=== PATIENT | female | born 1980 | race Caucasian/White ===

== ENCOUNTER 2023-07-16 08:30 | Observation (INO) ==
[2023-07-16 08:52] VITALS: BMI 42.5
[2023-07-16] MEDS ORDERED: TORADOL 60 MG VIAL IM ONE (09:21)
--- NOTE | 2023-07-16 09:21 | DR.URIAD ---
HPI Time Seen Time Seen by Provider: 07/16/23 09:20 PCP Primary Care Physician: tomasa Complaint Chief Complaint:: fever and body aches since wed night. has taken theraflu x2 doses. positive family contact for flu who was in the hospital. pt states temp was up to 105 has not taken tylenol or motrin today. Self Treatment fo Chief Complaint: theraflu 2 dose COVID-19 Coronavirus risk:travel/contact w/high risk person: Yes Has patient experienced Coronavirus symptoms: Yes Coronavirus symptoms experienced: Fever Source History Provided: Patient and Family Member Mode of Arrival Mode of Arrival: Wheelchair Timing Onset of Chief Complaint: 07/14/23 Quality Shortness of Breath: Mild PMH PMH Past Medical History: Yes Past Medical History Comment: tachycardia, dystolic dysfunction Past Surgical History: Yes Surgical History: Cholecystectomy, [place] [employer] Surgery, Hysterectomy and Ortho Surgery Family History History of Family Medical Conditions: Yes Family Medical History: Cancer, [place] and Coronary Artery Disease Social History Alcohol Use: None Do you use any recreational Drugs:: Yes (thc for migraines) Lives With: Family Lives Where: Home Travel Risk Coronavirus risk:travel/contact w/high risk person: Yes Has patient experienced Coronavirus symptoms: Yes Coronavirus symptoms experienced: Fever Infectious screening In the last 2 months have you had wt loss of >10#?: NO Have you had fever, night sweats or hemotysis?: No Have you traveled outside the country in the last 6 months?: No Isolation: Standard PE Vital Signs Vitals: Vital Signs Temperature 98.3 F Temperature 103 F Pulse Rate 111 Respiratory Rate 18 Respiratory Rate 18 Respiratory Rate 20 Respiratory Rate 20 Respiratory Rate 20 Blood Pressure 136/65 O2 Sat by Pulse Oximetry 96 COURSE Treatment Treatment: See orders done while patient was in the emergency room. Patient is 42-year-old female who developed URI symptoms and flulike symptoms 3 days ago that is getting worse. Parent was evaluated in the emergency room and found to have new onset congestive heart failure as evidenced by fluid buildup on the chest x-ray and elevated BNp on chemistry. Labs and x-ray reports were discussed with patient and her primary care physician was consulted Education/Counseling Education/Counseling: Patient Educated On: Diagnosis ROR Labs Reviewed Laboratory Results Reviewed?: Yes 07/16/23 10:08 07/16/23 10:08 Laboratory: WBC 10.9 X10^3/uL (3.6-10.0) H 07/16/23 10:08 RBC 4.55 X10^6/uL (3.5-5.4) 07/16/23 10:08 Hgb 10.3 g/dL (12.0-16.0) L 07/16/23 10:08 Hct 32.1 % (36.0-47.0) L 07/16/23 10:08 MCV 70.5 fL (80.0-100.0) L 07/16/23 10:08 MCH 22.7 pg (27.0-34.0) L 07/16/23 10:08 MCHC 32.2 g/dL (33.0-35.0) L 07/16/23 10:08 RDW 16.7 % (11.6-16.5) H 07/16/23 10:08 Plt Count 281 X10^3/uL (150.0-450.0) 07/16/23 10:08 Plt Count Comment Adequate (ADEQUATE) 07/16/23 10:08 MPV 8.3 fL (7.4-11.0) 07/16/23 10:08 Neut % (Auto) 88.6 % (42.0-75.0) H 07/16/23 10:08 Lymph % (Auto) 6.0 % (21.0-51.0) L 07/16/23 10:08 [place] % (Auto) 4.8 % (0.0-13.0) 07/16/23 10:08 Eos % (Auto) 0.0 % (0.9-2.9) L 07/16/23 10:08 Baso % (Auto) 0.6 % (0.2-1.0) 07/16/23 10:08 Neut # (Auto) 9.7 x10^3/uL (2.2-4.8) H 07/16/23 10:08 Lymph # (Auto) 0.7 X10^3/uL (1.3-2.9) L 07/16/23 10:08 [place] # (Auto) 0.5 x10^3/uL (0.3-0.8) 07/16/23 10:08 Eos # (Auto) 0.0 x10^3/uL (0.0-0.2) 07/16/23 10:08 Baso # (Auto) 0.1 X10^3/uL (0.0-0.1) 07/16/23 10:08 Absolute Nucleated RBC 0.0 /100WBC 07/16/23 10:08 Plt Morphology Comment Normal (NORMAL) 07/16/23 10:08 RBC Morphology Abnormal (NORMAL) A 07/16/23 10:08 Hypochromasia 1+ A 07/16/23 10:08 Microcytosis Slight A 07/16/23 10:08 Ovalocytes 1+ A 07/16/23 10:08 Sodium 133 mmol/L (136-145) L 07/16/23 10:08 Corrected Sodium TNP 07/16/23 10:08 Potassium 3.0 mmol/L (3.5-5.1) L 07/16/23 10:08 Chloride 98 mmol/L (98-107) 07/16/23 10:08 Carbon Dioxide 22.2 mmol/L (21-32) 07/16/23 10:08 BUN 10 mg/dL (7-18) 07/16/23 10:08 Creatinine 0.71 mg/dL (0.55-1.02) 07/16/23 10:08 Est GFR (MDRD) Af Amer > 60 (>60) 07/16/23 10:08 Est GFR (MDRD) Non-Af > 60 (>60) 07/16/23 10:08 Glucose 97 mg/dL (65-99) 07/16/23 10:08 Calcium 7.5 mg/dL (8.5-10.1) L 07/16/23 10:08 Corrected Calcium 8.5 mg/dL (8.5-10.1) 07/16/23 10:08 Total Bilirubin 1.10 mg/dL (0.2-1.0) H 07/16/23 10:08 AST 24 Units/L (15-37) 07/16/23 10:08 ALT 20 Units/L (12-78) 07/16/23 10:08 Alkaline Phosphatase 112 Units/L (46-116) 07/16/23 10:08 Creatine Kinase 31 Units/L (26-192) 07/16/23 13:46 Troponin I High Sens 8.2 ng/L (4.0-60.0) 07/16/23 13:46 B-Natriuretic Peptide 295 pg/mL (0-79) H 07/16/23 10:08 Total Protein 6.7 g/dL (6.4-8.2) 07/16/23 10:08 Albumin 2.7 g/dL (3.4-5.0) L 07/16/23 10:08 Globulin 4.0 g/dL (2.5-4.5) 07/16/23 10:08 Albumin/Globulin Ratio 0.7 Ratio (1.1-2.1) L 07/16/23 10:08 SARS-CoV-2 (PCR) Negative (NEGATIVE) 07/16/23 09:05 Influenza Type A (PCR) Negative (NEGATIVE) 07/16/23 09:05 Influenza Type B (PCR) Negative (NEGATIVE) 07/16/23 09:05 RSV (PCR) Negative (NEGATIVE) 07/16/23 09:05 XRAY XRAY Interpreted by: Radiologist (Report noted.) and Self Opioid Opioid Risk Tool Age (Guillaume box if 16-45): Yes History of Preadolescent Sexual Abuse: No Total: 1 Total Score Risk Category: Low Risk Copyright: Sukhdeep LEONARD predicting aberrant behaviors Discharge Plan Discharge Plan Patient Disposition: 01 HOME, SELF-CARE Condition: Stable Prescriptions: No Action celecoxib 200 mg capsule 200 mg PO QDAY pantoprazole 40 mg tablet,delayed release (DR/EC) 40 mg PO QDAY metoprolol succinate 25 mg tablet extended release 24 hr 25 mg PO QPM progesterone micronized 100 mg capsule 100 mg PO QPM Health Concerns: Post Hospitalization: new medications and changes needed to prevent readmission or further decline. Pt educated and given instructions on all concerns. Plan of Treatment: Continue with present treatment and follow up plan. Pt is to keep follow up appointment as instructed and take medications as ordered. Orders to Discharge Patient Discharge Orders: Transfer (Routine); Ordered 07/16/23 Ordered By: VIC SANTORO Follow ups/Referrals Follow ups/Referrals: Tom Astorga [Primary Care Provider] - 3 days Instructions Stand Alone Forms: Post Hospital Follow Up Care
[2023-07-16] MEDS ORDERED: TYLENOL 500 MG TAB EXTRA STRENGTH PO ONE ×2 (09:22→09:23)
[2023-07-16] MEDS ORDERED: TORADOL 60 MG VIAL ONE (09:23)
[2023-07-16] MEDS ORDERED: NS 1,000 ML IV 1,000 ML IV ONE (09:47)
[2023-07-16] MEDS ORDERED: NS 1,000 ML IV 1,000 ML ONE (10:08)
[2023-07-16 10:21] LABS: BASOPHILS # (AUTO) 0.1 X10^3/uL (0.0-0.1); BASOPHILS % (AUTO) 0.6 % (0.2-1.0); HEMATOCRIT 32.1 % (36.0-47.0); HEMOGLOBIN 10.3 g/dL (12.0-16.0); LYMPHOCYTES # (AUTO) 0.7 X10^3/uL (1.3-2.9); MEAN CORPUSCULAR HEMOGLOBIN 22.7 pg (27.0-34.0); MEAN CORPUSCULAR HGB CONC 32.2 g/dL (33.0-35.0); MEAN CORPUSCULAR VOLUME 70.5 fL (80.0-100.0); MEAN PLATELET VOLUME 8.3 fL (7.4-11.0); MONOCYTES # (AUTO) 0.5 x10^3/uL (0.3-0.8); MONOCYTES % (AUTO) 4.8 % (0.0-13.0); NEUTROPHILS # (AUTO) 9.7 x10^3/uL (2.2-4.8); NEUTROPHILS % (AUTO) 88.6 % (42.0-75.0); PLATELET COUNT 281 X10^3/uL (150.0-450.0); RED BLOOD COUNT 4.55 X10^6/uL (3.5-5.4); RED CELL DISTRIBUTION WIDTH 16.7 % (11.6-16.5); WHITE BLOOD COUNT 10.9 X10^3/uL (3.6-10.0)
[2023-07-16 10:27] LABS: ALANINE AMINOTRANSFERASE 20 Units/L (12-78); ALBUMIN 2.7 g/dL (3.4-5.0); ALKALINE PHOSPHATASE 112 Units/L (46-116); ASPARTATE AMINO TRANSFERASE 24 Units/L (15-37); BLOOD UREA NITROGEN 10 mg/dL (7-18); CALCIUM 7.5 mg/dL (8.5-10.1); CARBON DIOXIDE 22.2 mmol/L (21-32); CHLORIDE 98 mmol/L (98-107); COR CA(FOR HYPOALB) 8.5 mg/dL (8.5-10.1); CREATININE 0.71 mg/dL (0.55-1.02); GLUCOSE 97 mg/dL (65-99); SODIUM 133 mmol/L (136-145); TOTAL PROTEIN 6.7 g/dL (6.4-8.2); eGFR NON BLACK RACES > 60 (>60)
--- NOTE | 2023-07-16 10:41 | RAD ---
EXAM:CHEST, 1 VIEWHISTORY:COUGH, FEVER, FLU LIKE SYMPTOMS;COMPARISON:No relevant prior studies were available at the time of interpretation.TECHNIQUE:CHEST, 1 VIEWFINDINGS:Chest:Lines and tubes: NoneMediastinum: Cardiac and mediastinal shadow is within normal limits for size and contour.Pulmonary vessels: Pulmonary vasculature is prominent.Lung acosta: No suspicious airspace opacity.Pleura: No effusion. No pneumothorax.Bones and soft tissues: No acute osseous or soft tissue abnormality.IMPRESSION:1. Findings suggest mild heart failureTHIS IS AN ELECTRONICALLY VERIFIED FINAL [id number]/2023 10:37 AM - Electronically signed by Kris Nolasco MD
[2023-07-16 10:57] LABS: HYPOCHROMASIA 1+; MICROCYTOSIS SLIGHT; OVALOCYTES 1+; PLATELET MORPHOLOGY COMMENT NORMAL (NORMAL)
[2023-07-16] MEDS ORDERED: K-DUR TAB 20 MEQ PO ONE ×2 (11:09→11:17)
[2023-07-16] MEDS ORDERED: LASIX IVP ONE (13:25)
[2023-07-16] MEDS ORDERED: LASIX ONE (13:29)
[2023-07-16] MEDS ORDERED: CLEOCIN 600 MG IV PREMIX 600 MG/50 ML BAG IV ONE (13:29)
[2023-07-16] MEDS: CLEOCIN 600 MG IV PREMIX 600 MG/50 ML BAG IV SCH ×2 (13:33→21:07)
--- NOTE | 2023-07-16 14:20 | EKG ---
Test Reason : CHF Blood Pressure : */* mmHG Vent. Rate : 70 BPM Atrial Rate : 70 BPM P-R Int : 120 ms QRS Dur : 90 ms QT Int : 440 ms P-R-T Axes : 38 39 45 degrees QTc Int : 475 ms Normal sinus rhythm Normal ECG No previous ECGs available Confirmed by Arnold Sykes ([id number]) on 07/16/2023 4:28:09 PM Referred By: Confirmed By: Arnold Sykes
--- NOTE | 2023-07-16 15:24 | VAS ---
EXAM:LEVUNIBCH RIGHT Lower extremity DVT Doppler ultrasound examination.HISTORY:rt lower ext redness; Lower extremity pain, swelling, and edemaCOMPARISON:None.TECHNIQUE:Ultrasoun d of the deep venous vasculature of the right lower extremity was performed. Color and spectral doppler imaging was utilized.FINDINGS:The deep veins of the right lower extremity are normal in size and configuration. No intraluminal filling defects are seen on grayscale or color flow imaging.The veins compress normally. Doppler waveforms are normal at rest and with augmentation.IMPRESSION:Negative right lower extremity DVT ultrasound exam.THIS IS AN ELECTRONICALLY VERIFIED FINAL [id number]/2023 3:20 PM - Electronically signed by Ori Gorman
[2023-07-16] MEDS: LASIX IVP SCH (17:55)
[2023-07-16] MEDS ORDERED: NS 250 ML IV 250 ML IV ONE (20:52)
[2023-07-16] MEDS: TOPROL XL PO SCH (20:54)
[2023-07-16] MEDS ORDERED: ZOFRAN TAB 4 MG SL PRN (21:10)
[2023-07-16] MEDS: ULTRAM PO PRN (21:30)
[2023-07-16] MEDS ORDERED: CLEOCIN 600 MG IV PREMIX 600 MG/50 ML BAG IV SCH (22:00)
[2023-07-17] MEDS: CLEOCIN 600 MG IV PREMIX 600 MG/50 ML BAG IV SCH ×3 (05:22→21:46)
[2023-07-17 05:25] LABS: BASOPHILS # (AUTO) 0.1 X10^3/uL (0.0-0.1); HEMATOCRIT 31.9 % (36.0-47.0); HEMOGLOBIN 10.1 g/dL (12.0-16.0); LYMPHOCYTES # (AUTO) 0.9 X10^3/uL (1.3-2.9); LYMPHOCYTES % (AUTO) 12.7 % (21.0-51.0); MEAN CORPUSCULAR HEMOGLOBIN 22.4 pg (27.0-34.0); MEAN CORPUSCULAR HGB CONC 31.8 g/dL (33.0-35.0); MEAN CORPUSCULAR VOLUME 70.4 fL (80.0-100.0); MEAN PLATELET VOLUME 8.8 fL (7.4-11.0); MONOCYTES # (AUTO) 0.5 x10^3/uL (0.3-0.8); MONOCYTES % (AUTO) 6.7 % (0.0-13.0); NEUTROPHILS # (AUTO) 5.8 x10^3/uL (2.2-4.8); NEUTROPHILS % (AUTO) 79.6 % (42.0-75.0); PLATELET COUNT 279 X10^3/uL (150.0-450.0); RED BLOOD COUNT 4.53 X10^6/uL (3.5-5.4); WHITE BLOOD COUNT 7.3 X10^3/uL (3.6-10.0)
[2023-07-17 05:40] LABS: ALANINE AMINOTRANSFERASE 21 Units/L (12-78); ALBUMIN 2.5 g/dL (3.4-5.0); ALKALINE PHOSPHATASE 106 Units/L (46-116); ASPARTATE AMINO TRANSFERASE 19 Units/L (15-37); BLOOD UREA NITROGEN 10 mg/dL (7-18); CALCIUM 7.2 mg/dL (8.5-10.1); CARBON DIOXIDE 24.6 mmol/L (21-32); CHLORIDE 98 mmol/L (98-107); CHOL/HDL RATIO 2.7 (0.0-5.0); CHOLESTEROL 90 mg/dL (0-200); COR CA(FOR HYPOALB) 8.4 mg/dL (8.5-10.1); CREATININE 0.73 mg/dL (0.55-1.02); GLUCOSE 104 mg/dL (65-99); HDL CHOLESTEROL 33 mg/dL (40-60); MAGNESIUM 1.7 mg/dL (2.0-2.9); SODIUM 133 mmol/L (136-145); TOTAL PROTEIN 6.6 g/dL (6.4-8.2); TRIGLYCERIDES 70 mg/dL (0-150); eGFR NON BLACK RACES > 60 (>60)
[2023-07-17 05:55] LABS: HYPOCHROMASIA 1+; PLATELET MORPHOLOGY COMMENT NORMAL (NORMAL)
[2023-07-17 05:56] LABS: ANISOCYTOSIS SLIGHT; MICROCYTOSIS SLIGHT; OVALOCYTES PRESENT
[2023-07-17] MEDS ORDERED: CONSULT PHARMACY - POTASSIUM & MAGNESIUM XX SCH (07:00)
[2023-07-17] MEDS: CELEBREX PO SCH (08:40)
[2023-07-17] MEDS: K-DUR TAB 20 MEQ PO SCH ×3 (08:40→13:31)
[2023-07-17] MEDS: MAG-OX TAB PO SCH ×2 (08:40→09:55)
[2023-07-17] MEDS: PROTONIX TAB 40 MG PO SCH (08:40)
[2023-07-17] MEDS: LASIX IVP SCH ×2 (08:41→16:22)
--- NOTE | 2023-07-17 11:47 | EKG ---
Test Reason : ARRHYTHMIA Blood Pressure : */* mmHG Vent. Rate : 72 BPM Atrial Rate : 72 BPM P-R Int : 112 ms QRS Dur : 90 ms QT Int : 416 ms P-R-T Axes : 44 54 43 degrees QTc Int : 455 ms Sinus rhythm with premature atrial complexes Otherwise normal ECG When compared with ECG of 16-JUL-2023 13:48, premature atrial complexes are now present Confirmed by Arnold Sykes ([id number]) on 07/19/2023 11:45:18 AM Referred By: Confirmed By: Arnold Sykes
--- NOTE | 2023-07-17 13:08 | DR.H&P ---
H&P History & Physical for Day of: H&P Date: 07/16/23 Chief Complaint Chief Complaint: FEVER, FLU LIKE SYMPTOMS, RIGHT LEG INFECTED Allergies Allergies Allergy/AdvReac Type Severity Reaction Status Date / Time onion Allergy Verified 07/16/23 16:00 History of Present Illness History of Present Illness: Pt is 42, WF, ER admission after presenting with co fever and body aches since wed night. has taken theraflu x2 doses. positive family contact for flu who was in the hospital. pt states temp was up to 105 has not taken tylenol or motrin today. Pt reports she has been diagnosed with diastolic heart dysfunction per Dr. Segura, with ECHO in the past 60 days. Pt reports RLE wound with redness to anterior dickey. Past Surgical History Surgical History: , Cholecystectomy, [employer] Surgery, Hysterectomy, Ortho Surgery and Tonsillectomy Family History Family Medical History: Cancer, [place] and Coronary Artery Disease Social History Does patient currently use any type of tobacco product: No Have you used tobacco products in the last 12 months: No Type of Tobacco Use: None Alcohol Use: None Drug Use: None Medications Home Medications: Home Medications Medication Instructions Recorded Confirmed Type celecoxib 200 mg capsule 200 mg PO QDAY 07/16/23 07/16/23 History metoprolol succinate 25 mg 25 mg PO QPM 07/16/23 07/16/23 History tablet,extended release 24 hr pantoprazole 40 mg tablet,delayed 40 mg PO QDAY 07/16/23 07/16/23 History release progesterone micronized 100 mg 100 mg PO QPM 07/16/23 07/16/23 History capsule Labs 07/17/23 04:40 07/17/23 04:40 Labs: Laboratory WBC 7.3 X10^3/uL (3.6-10.0) 07/17/23 04:40 RBC 4.53 X10^6/uL (3.5-5.4) 07/17/23 04:40 Hgb 10.1 g/dL (12.0-16.0) L 07/17/23 04:40 Hct 31.9 % (36.0-47.0) L 07/17/23 04:40 MCV 70.4 fL (80.0-100.0) L 07/17/23 04:40 MCH 22.4 pg (27.0-34.0) L 07/17/23 04:40 MCHC 31.8 g/dL (33.0-35.0) L 07/17/23 04:40 RDW 17.0 % (11.6-16.5) H 07/17/23 04:40 Plt Count 279 X10^3/uL (150.0-450.0) 07/17/23 04:40 Plt Count Comment Adequate (ADEQUATE) 07/17/23 04:40 MPV 8.8 fL (7.4-11.0) 07/17/23 04:40 Neut % (Auto) 79.6 % (42.0-75.0) H 07/17/23 04:40 Lymph % (Auto) 12.7 % (21.0-51.0) L 07/17/23 04:40 [place] % (Auto) 6.7 % (0.0-13.0) 07/17/23 04:40 Eos % (Auto) 0.0 % (0.9-2.9) L 07/17/23 04:40 Baso % (Auto) 1.0 % (0.2-1.0) 07/17/23 04:40 Neut # (Auto) 5.8 x10^3/uL (2.2-4.8) H 07/17/23 04:40 Lymph # (Auto) 0.9 X10^3/uL (1.3-2.9) L 07/17/23 04:40 [place] # (Auto) 0.5 x10^3/uL (0.3-0.8) 07/17/23 04:40 Eos # (Auto) 0.0 x10^3/uL (0.0-0.2) 07/17/23 04:40 Baso # (Auto) 0.1 X10^3/uL (0.0-0.1) 07/17/23 04:40 Absolute Nucleated RBC 0.0 /100WBC 07/17/23 04:40 Plt Morphology Comment Normal (NORMAL) 07/17/23 04:40 RBC Morphology Abnormal (NORMAL) A 07/17/23 04:40 Hypochromasia 1+ A 07/17/23 04:40 Anisocytosis Slight A 07/17/23 04:40 Microcytosis Slight A 07/17/23 04:40 Ovalocytes Present 07/17/23 04:40 Sodium 133 mmol/L (136-145) L 07/17/23 04:40 Corrected Sodium TNP 07/17/23 04:40 Potassium 3.0 mmol/L (3.5-5.1) L 07/17/23 04:40 Chloride 98 mmol/L (98-107) 07/17/23 04:40 Carbon Dioxide 24.6 mmol/L (21-32) 07/17/23 04:40 BUN 10 mg/dL (7-18) 07/17/23 04:40 Creatinine 0.73 mg/dL (0.55-1.02) 07/17/23 04:40 Est GFR (MDRD) Af Amer > 60 (>60) 07/17/23 04:40 Est GFR (MDRD) Non-Af > 60 (>60) 07/17/23 04:40 Glucose 104 mg/dL (65-99) H 07/17/23 04:40 Lactic Acid 0.9 mmol/L (0.4-2.0) 07/16/23 16:24 Calcium 7.2 mg/dL (8.5-10.1) L 07/17/23 04:40 Corrected Calcium 8.4 mg/dL (8.5-10.1) L 07/17/23 04:40 Magnesium 1.7 mg/dL (2.0-2.9) L 07/17/23 04:40 Total Bilirubin 0.60 mg/dL (0.2-1.0) 07/17/23 04:40 AST 19 Units/L (15-37) 07/17/23 04:40 ALT 21 Units/L (12-78) 07/17/23 04:40 Alkaline Phosphatase 106 Units/L (46-116) 07/17/23 04:40 Creatine Kinase 31 Units/L (26-192) 07/16/23 13:46 Troponin I High Sens 8.2 ng/L (4.0-60.0) 07/16/23 13:46 B-Natriuretic Peptide 119 pg/mL (0-79) H 07/17/23 04:40 Total Protein 6.6 g/dL (6.4-8.2) 07/17/23 04:40 Albumin 2.5 g/dL (3.4-5.0) L 07/17/23 04:40 Globulin 4.1 g/dL (2.5-4.5) 07/17/23 04:40 Albumin/Globulin Ratio 0.6 Ratio (1.1-2.1) L 07/17/23 04:40 Triglycerides 70 mg/dL (0-150) 07/17/23 04:40 Cholesterol 90 mg/dL (0-200) 07/17/23 04:40 LDL Cholesterol, Calc 43 mg/dL (0-100) 07/17/23 04:40 HDL Cholesterol 33 mg/dL (40-60) L 07/17/23 04:40 Cholesterol/HDL Ratio 2.7 (0.0-5.0) 07/17/23 04:40 SARS-CoV-2 (PCR) Negative (NEGATIVE) 07/16/23 09:05 Influenza Type A (PCR) Negative (NEGATIVE) 07/16/23 09:05 Influenza Type B (PCR) Negative (NEGATIVE) 07/16/23 09:05 RSV (PCR) Negative (NEGATIVE) 07/16/23 09:05 Review of Systems Constitutional: Fever and Malaise Eyes: No Symptoms Reported ENT: Nose Congestion Cardiovascular: Edema; denies Chest Pain Gastrointestinal: Diarrhea Genitourinary: No Symptoms Reported Musculoskeletal: Leg Pain Skin: Wound (rle anterior ulceration) Neurological: No Symptoms Reported Physical Exam Vital Signs: Vital Signs Temperature 99.2 F Temperature 98.6 F Pulse Rate [Left] 72 Pulse Rate [Left] 83 Respiratory Rate 18 Respiratory Rate 18 Blood Pressure [Right Arm] 124/58 Blood Pressure [Right Arm] 139/63 O2 Sat by Pulse Oximetry 97 O2 Sat by Pulse Oximetry 97 Oriented: Normal Eyes: Normal Ear: Normal Nose: Normal Respiratory: RLL Diminished and LLL Diminished Cardiovascular: Irregular and Edema Palpation: Normal Tenderness: Normal Skin: Wound Psychiatric: Anxiety Mood Description: Anxious Speech Pattern: Clear and Appropriate Assessment/Plan (1) Diastolic dysfunction with acute on chronic heart failure: Narrative Support Text: ADMIT CE AND CXR ON ADMISSION TELEMETRY, BP CONTROL IV ABTX. VENOUS US ON ADMISSION IN ER VERIFY HOME MEDICATION ECHO ON WEDNESDAY ORDERED FROM ER I&OS Status: Acute (2) Cellulitis of right leg: Status: Acute (3) Venous ulcer of right leg: Status: Acute (4) Exposure to the flu: Status: Acute
[2023-07-17] MEDS ORDERED: MAALOX or MYLANTA PO PRN (14:00)
[2023-07-17] MEDS: TOPROL XL PO SCH (20:06)
[2023-07-17] MEDS: ULTRAM PO PRN (20:07)
--- NOTE | 2023-07-18 01:58 | RAD ---
PROCEDURE: Chest X-ray 1 View .HISTORY: Dyspnea and fever.TECHNIQUE: AP view .COMPARISON: 07/16/2023.TECHNICAL QUALITY: Satisfactory .FINDINGS:Normal size heart .Mediastinum and hilar regions show no masses or lymphadenopathy .Normal central vascularity .No pulmonary consolidation, masses, pleural fluid, or pneumothorax .No acute bony abnormality .IMPRESSION:No active cardiopulmonary disease .Electronically signed by: Vipin Hoffman (Jul 18, 2023 01:56:42)
[2023-07-18 04:44] LABS: BASOPHILS # (AUTO) 0.1 X10^3/uL (0.0-0.1); BASOPHILS % (AUTO) 1.2 % (0.2-1.0); EOSINOPHILS # (AUTO) 0.1 x10^3/uL (0.0-0.2); EOSINOPHILS % (AUTO) 0.9 % (0.9-2.9); HEMATOCRIT 31.3 % (36.0-47.0); LYMPHOCYTES # (AUTO) 1.2 X10^3/uL (1.3-2.9); LYMPHOCYTES % (AUTO) 17.7 % (21.0-51.0); MEAN CORPUSCULAR HEMOGLOBIN 22.4 pg (27.0-34.0); MEAN CORPUSCULAR HGB CONC 31.9 g/dL (33.0-35.0); MEAN CORPUSCULAR VOLUME 70.4 fL (80.0-100.0); MONOCYTES # (AUTO) 0.9 x10^3/uL (0.3-0.8); MONOCYTES % (AUTO) 12.5 % (0.0-13.0); NEUTROPHILS # (AUTO) 4.6 x10^3/uL (2.2-4.8); NEUTROPHILS % (AUTO) 67.7 % (42.0-75.0); PLATELET COUNT 252 X10^3/uL (150.0-450.0); RED BLOOD COUNT 4.44 X10^6/uL (3.5-5.4); WHITE BLOOD COUNT 6.9 X10^3/uL (3.6-10.0)
[2023-07-18 04:54] LABS: ALANINE AMINOTRANSFERASE 12 Units/L (12-78); ALBUMIN 2.3 g/dL (3.4-5.0); ALKALINE PHOSPHATASE 106 Units/L (46-116); ASPARTATE AMINO TRANSFERASE 16 Units/L (15-37); BLOOD UREA NITROGEN 11 mg/dL (7-18); CALCIUM 7.4 mg/dL (8.5-10.1); CARBON DIOXIDE 27.9 mmol/L (21-32); CHLORIDE 99 mmol/L (98-107); COR CA(FOR HYPOALB) 8.8 mg/dL (8.5-10.1); CREATININE 0.68 mg/dL (0.55-1.02); GLUCOSE 81 mg/dL (65-99); POTASSIUM 3.1 mmol/L (3.5-5.1); SODIUM 136 mmol/L (136-145); TOTAL PROTEIN 6.4 g/dL (6.4-8.2); eGFR NON BLACK RACES > 60 (>60)
[2023-07-18] MEDS: CLEOCIN 600 MG IV PREMIX 600 MG/50 ML BAG IV SCH (05:12)
[2023-07-18 05:43] LABS: ANISOCYTOSIS SLIGHT; HYPOCHROMASIA 1+; MICROCYTOSIS SLIGHT; OVALOCYTES PRESENT; PLATELET MORPHOLOGY COMMENT NORMAL (NORMAL)
[2023-07-18] MEDS ORDERED: CONSULT PHARMACY - POTASSIUM & MAGNESIUM XX SCH (07:00)
[2023-07-18] MEDS: CELEBREX PO SCH (08:09)
[2023-07-18] MEDS: PROTONIX TAB 40 MG PO SCH (08:09)
[2023-07-18] MEDS: K-DUR TAB 20 MEQ PO SCH ×2 (08:09→10:06)
[2023-07-18] MEDS: LASIX IVP SCH (08:10)
[2023-07-18] MEDS ORDERED: PHARMACY CONSULT - VANCOMYCIN XX SCH (13:00)
[2023-07-18] MEDS: VANCOMYCIN IV *PREMIX 2 G/400 ML BAG 2 G/400 ML PIGGYBACK IV SCH (14:32)
[2023-07-18] MEDS: TOPROL XL PO SCH (20:39)
[2023-07-19] MEDS ORDERED: OMNIPAQUE 350 MG/ML ONE (02:37)
[2023-07-19] MEDS: VANCOMYCIN IV *PREMIX 2 G/400 ML BAG 2 G/400 ML PIGGYBACK IV SCH ×2 (03:51→15:17)
[2023-07-19 05:27] LABS: BASOPHILS # (AUTO) 0.1 X10^3/uL (0.0-0.1); EOSINOPHILS # (AUTO) 0.1 x10^3/uL (0.0-0.2); EOSINOPHILS % (AUTO) 1.5 % (0.9-2.9); HEMATOCRIT 30.3 % (36.0-47.0); HEMOGLOBIN 9.7 g/dL (12.0-16.0); LYMPHOCYTES # (AUTO) 1.5 X10^3/uL (1.3-2.9); LYMPHOCYTES % (AUTO) 20.6 % (21.0-51.0); MEAN CORPUSCULAR HEMOGLOBIN 22.3 pg (27.0-34.0); MEAN CORPUSCULAR HGB CONC 31.9 g/dL (33.0-35.0); MEAN PLATELET VOLUME 8.9 fL (7.4-11.0); MONOCYTES # (AUTO) 0.7 x10^3/uL (0.3-0.8); MONOCYTES % (AUTO) 9.2 % (0.0-13.0); NEUTROPHILS % (AUTO) 67.7 % (42.0-75.0); PLATELET COUNT 275 X10^3/uL (150.0-450.0); RED BLOOD COUNT 4.33 X10^6/uL (3.5-5.4); RED CELL DISTRIBUTION WIDTH 16.9 % (11.6-16.5); WHITE BLOOD COUNT 7.4 X10^3/uL (3.6-10.0)
[2023-07-19 05:42] LABS: ALANINE AMINOTRANSFERASE 16 Units/L (12-78); ALBUMIN 2.3 g/dL (3.4-5.0); ALKALINE PHOSPHATASE 96 Units/L (46-116); ASPARTATE AMINO TRANSFERASE 13 Units/L (15-37); BLOOD UREA NITROGEN 8 mg/dL (7-18); CALCIUM 7.4 mg/dL (8.5-10.1); CARBON DIOXIDE 26.6 mmol/L (21-32); CHLORIDE 102 mmol/L (98-107); COR CA(FOR HYPOALB) 8.8 mg/dL (8.5-10.1); CREATININE 0.62 mg/dL (0.55-1.02); GLUCOSE 83 mg/dL (65-99); POTASSIUM 3.6 mmol/L (3.5-5.1); SODIUM 138 mmol/L (136-145); TOTAL PROTEIN 6.5 g/dL (6.4-8.2); eGFR NON BLACK RACES > 60 (>60)
[2023-07-19 05:50] LABS: ANISOCYTOSIS SLIGHT; HYPOCHROMASIA 1+; MICROCYTOSIS 1+; OVALOCYTES PRESENT; PLATELET MORPHOLOGY COMMENT NORMAL (NORMAL)
[2023-07-19] MEDS ORDERED: CONSULT PHARMACY - POTASSIUM & MAGNESIUM XX SCH (06:00)
[2023-07-19] MEDS: LASIX IVP SCH (09:45)
[2023-07-19] MEDS: K-DUR TAB 20 MEQ PO SCH ×2 (09:48→13:26)
[2023-07-19] MEDS: PROTONIX TAB 40 MG PO SCH ×2 (09:48→13:26)
[2023-07-19] MEDS: CELEBREX PO SCH ×2 (09:48→13:25)
[2023-07-19] MEDS ORDERED: PHARMACY CONSULT - LOVENOX XX SCH (12:00)
[2023-07-19] MEDS ORDERED: OMNIPAQUE 350 mg/mL 100 mL BTL 100 ML ONE (13:22)
[2023-07-19] MEDS ORDERED: OMNIPAQUE 350 mg/mL 50 mL BTL 50 ML ONE (13:22)
[2023-07-19] MEDS: LOVENOX INJ 40 MG SYR SC SCH (20:56)
[2023-07-19] MEDS: TOPROL XL PO SCH (20:56)
[2023-07-20] MEDS ORDERED: PHARMACY COMMENT IV NR (02:30)
[2023-07-20 03:04] LABS: BASOPHILS # (AUTO) 0.1 X10^3/uL (0.0-0.1); BASOPHILS % (AUTO) 0.9 % (0.2-1.0); EOSINOPHILS # (AUTO) 0.2 x10^3/uL (0.0-0.2); EOSINOPHILS % (AUTO) 2.1 % (0.9-2.9); HEMATOCRIT 30.8 % (36.0-47.0); HEMOGLOBIN 9.8 g/dL (12.0-16.0); LYMPHOCYTES # (AUTO) 2.4 X10^3/uL (1.3-2.9); LYMPHOCYTES % (AUTO) 24.5 % (21.0-51.0); MEAN CORPUSCULAR HEMOGLOBIN 22.2 pg (27.0-34.0); MEAN CORPUSCULAR HGB CONC 31.7 g/dL (33.0-35.0); MEAN CORPUSCULAR VOLUME 69.9 fL (80.0-100.0); MEAN PLATELET VOLUME 8.7 fL (7.4-11.0); MONOCYTES # (AUTO) 0.8 x10^3/uL (0.3-0.8); MONOCYTES % (AUTO) 8.2 % (0.0-13.0); NEUTROPHILS # (AUTO) 6.2 x10^3/uL (2.2-4.8); NEUTROPHILS % (AUTO) 64.3 % (42.0-75.0); PLATELET COUNT 305 X10^3/uL (150.0-450.0); RED BLOOD COUNT 4.41 X10^6/uL (3.5-5.4); RED CELL DISTRIBUTION WIDTH 16.8 % (11.6-16.5); WHITE BLOOD COUNT 9.7 X10^3/uL (3.6-10.0)
[2023-07-20 03:08] LABS: ANISOCYTOSIS SLIGHT; HYPOCHROMASIA 1+; MICROCYTOSIS 1+; OVALOCYTES PRESENT; PLATELET MORPHOLOGY COMMENT NORMAL (NORMAL)
[2023-07-20 03:13] LABS: ALANINE AMINOTRANSFERASE 12 Units/L (12-78); ALBUMIN 2.2 g/dL (3.4-5.0); ALKALINE PHOSPHATASE 92 Units/L (46-116); ASPARTATE AMINO TRANSFERASE 12 Units/L (15-37); BLOOD UREA NITROGEN 7 mg/dL (7-18); CALCIUM 7.5 mg/dL (8.5-10.1); CARBON DIOXIDE 27.7 mmol/L (21-32); CHLORIDE 103 mmol/L (98-107); COR CA(FOR HYPOALB) 8.9 mg/dL (8.5-10.1); CREATININE 0.58 mg/dL (0.55-1.02); GLUCOSE 84 mg/dL (65-99); POTASSIUM 3.3 mmol/L (3.5-5.1); SODIUM 139 mmol/L (136-145); TOTAL PROTEIN 6.4 g/dL (6.4-8.2); eGFR NON BLACK RACES > 60 (>60)
[2023-07-20 03:19] LABS: CREATININE 0.58 mg/dL (0.55-1.02); VANCOMYCIN,TROUGH 10.2 ug/mL (15-20)
[2023-07-20] MEDS: VANCOMYCIN IV *PREMIX 2 G/400 ML BAG 2 G/400 ML PIGGYBACK IV SCH (03:30)
[2023-07-20] MEDS ORDERED: CONSULT PHARMACY - POTASSIUM & MAGNESIUM XX SCH (06:00)
--- NOTE | 2023-07-20 07:21 | RAD ---
EXAM:CHEST, 1 VIEWHISTORY:NEW ONSET CHF, SOB ;COMPARISON:07/17/2023.TECHNIQUE:AP view of the chestFINDINGS:The cardiac and mediastinal contours are within normal limits. The lungs are clear without focal consolidation or segmental collapse. No pleural effusion or pneumothorax. Series softIMPRESSION:No acute pulmonary process.THIS IS AN ELECTRONICALLY VERIFIED FINAL [id number]/20/2023 7:17 AM - Electronically signed by Edwin Clifford MD
--- NOTE | 2023-07-20 08:15 | CT ---
EXAM:LOW EXT CTA W&W/O CONHISTORY:CELLULITIS LOWER EXTREMITY;COMPARISON:NoneTECHNIQUE:Multi ple CT axial images of the lower extremities were obtained before and after using IV contrast. 3D reconstructions utilizing axial MIPS imaging was performed and reviewed. Dose reduction techniques including Automated Exposure Control (AEC) and adjustment of mA and kV were utilized.Stenoses are measured using NASCET criteria.FINDINGS:Images were obtained from the distal aorta to the toes.Without contrast: No significant abnormal calcifications are present.With contrast: Distal aorta has a normal caliber with no aneurysm or dissection. Common iliac and external iliac arteries are widely patent. Both internal iliac arteries are patent.Right lower extremity: Femoropopliteal artery is widely patent. Popliteal artery gives rise to all 3 trifurcation branches in the proximal calf. The dominant vessel is the anterior tibial artery. Posterior tibial artery is very small at the ankle but extends into the foot also.Left lower extremity: There is no significant femoropopliteal artery disease or stenosis. The popliteal artery gives rise to a dominant peroneal artery which extends into the foot. The anterior tibial artery is very small but patent to the foot, only seen on delayed imaging. Posterior tibial artery is even smaller but I believe also extends at least to the distal calf only well seen on delayed imaging.Body: No free fluid or inflammation in the pelvis. There may be a 6 cm cystic structure in the right adnexal region. Probably ovarian in origin. Recommend correlation with sonography.Inguinal lymphadenopathy in the right groin is probably reactive from the findings in the lower extremity. There is diffuse edema in the lower extremity mostly in the distal calf extending into the ankle and foot. No focal fluid collection to suggest an abscess however. No emphysema in the soft tissues. The findings may represent bland edema or could represent cellulitis.No significant soft tissue abnormality in the left lower extremity.IMPRESSION:1. No significant peripheral vascular occlusive disease2. Findings suggesting cellulitis in the distal right lower extremity3. (6 cm) cystic structure right pelvis, probably ovarian; recommend correlation with sonographyTHIS IS AN ELECTRONICALLY VERIFIED FINAL [id number]/20/2023 8:11 AM - Electronically signed by Elijah Sow MD
[2023-07-20 08:32] VITALS: BP 119/55; PULSE 70; RESP 18; TEMP 97.2; O2SAT 98
[2023-07-20] MEDS ORDERED: K-DUR TAB 20 MEQ PO SCH (09:00)
[2023-07-20] MEDS: PROTONIX TAB 40 MG PO SCH (09:05)
[2023-07-20] MEDS: LASIX IVP SCH (09:06)
[2023-07-20] MEDS: LOVENOX INJ 40 MG SYR SC SCH (09:06)
[2023-07-20] MEDS: CELEBREX PO SCH (09:06)
[2023-07-20] MEDS ORDERED: VANCOMYCIN IV *PREMIX 2 G/400 ML BAG 2 G/400 ML PIGGYBACK IV SCH (11:00)
== END 2023-07-20 11:40 | disposition home or self-care (01) ==
LOC: MED/SURG 08:30 → ER 08:30 → MED/SURG 15:20
PROVIDERS: ADMIT Internal Medicine; ATTEND Internal Medicine
DX: I50.33 Acute on chronic diastolic (congestive) heart failure; R00.0 Tachycardia, unspecified; L03.115 Cellulitis of right lower limb; E87.6 Hypokalemia; Z20.822 Contact with and (suspected) exposure to COVID-19; L97.919 Non-pressure chronic ulcer of unspecified part of right lower leg with unspecified severity; I83.019 Varicose veins of right lower extremity with ulcer of unspecified site